=== PATIENT | male | born 1975 | race Caucasian/White ===

== ENCOUNTER 2023-11-07 08:01 | Day surgery (SDC) | payer BC, OTHER ==
[2023-10-22 15:47] VITALS: BMI 33.0
[2023-11-07 08:41] VITALS: RESP 18
[2023-11-07 09:54] VITALS: TEMP 97
[2023-11-07 09:56] VITALS: BP 118/62; PULSE 78
== END 2023-11-07 10:17 | disposition home or self-care (01) ==
LOC: FASU-ENDO 08:01
PROVIDERS: ATTEND Internal Medicine Gastroenterology
PROC: 0DJD8ZZ Inspection of Lower Intestinal Tract, Via Natural or Artificial Opening Endoscopic (ICD-10-PCS; principal; 2023-11-07 09:16)
DX: Z12.11 Encounter for screening for malignant neoplasm of colon (principal); K57.30 Diverticulosis of large intestine without perforation or abscess without bleeding